=== PATIENT | female | born 1960 | race Caucasian/White ===

== ENCOUNTER 2024-04-28 09:08 | Emergency (ER) | payer OTHER, SELFPAY ==
--- NOTE | ~2024-04-28 | XR_ITS ---
CLINICAL HISTORY: fall 3 views left ankle Comparison: CR - XR FOOT LT MIN 3V - 04/28/2024 09:38 AM EST Findings: The lateral projection was provided on the foot x-ray Incomplete hairline fracture distal tip of the fibula. Ankle mortise intact. Normal plafond. No osteochondral lesions. Calcaneus and subtalar joint intact. No plantar calcaneal spur. Soft tissue swelling along the lateral malleolus. Normal pre-Achilles fat pad. No radiopaque foreign body. Impression: 1. Incomplete hairline fracture distal tip of the fibula with overlying soft tissue swelling. Ankle mortise intact. This document has been electronically signed by: Akash Gunderson MD on 04/28/2024 11:03:08
--- NOTE | ~2024-04-28 | XR_ITS ---
CLINICAL HISTORY: fall 3 views left foot Comparison: None Findings: No fractures, subluxations or dislocations. No periostitis or bony destruction. Mild joint space narrowing of the interphalangeal joints with no erosive disease. Calcaneus and subtalar joint intact. Bunion/hallux valgus 1st metatarsophalangeal joint. Normal bone mineralization and soft tissues. Exostosis 2nd metatarsal bone proximally. No radiopaque foreign body. Impression: 1. No acute fractures or malalignment. Degenerative changes as described. This document has been electronically signed by: Akash Gunderson MD on 04/28/2024 10:56:42
[2024-04-28 09:21] VITALS: BP 162/80; PULSE 107; RESP 18; TEMP 37; O2SAT 97; BMI 23.9
--- NOTE | 2024-04-28 11:25 | ED_ITS ---
HPI - General Adult General Chief complaint: Fall Stated complaint: twisted ankle Time Seen by Provider: 04/28/24 11:24 Source: patient Mode of arrival: wheelchair Limitations: no limitations History of Present Illness ED Provider: Bushra Polanco PA-C HPI narrative: Patient is a 63 year old assigned female at with no reported medical history presenting to the emergency department today with left ankle pain. Patient states that she tripped and fell last night, twisting her left ankle. Patient denies any head strike with the incident, loss of consciousness with the incident, dizziness, lightheadedness, abdominal pain, nausea, vomiting, fever, chills, blurry vision, double vision, loss of vision, chest pain, difficulty breathing, shortness of breath, back pain, night sweats, pain with urination, increased urinary frequency, increased urinary urgency, blood in her urine or stool, syncope or a near syncopal episode, bowel incontinence, bladder incontinence, or any other complaints at this time. Onset (ago): day(s) (1) Location: left and lower extremity Relieving factors: none Exacerbating factors: movement Associated symptoms: denies other symptoms Treatments prior to arrival: none Related Data Previous Rx's ?Medication ?Instructions ?Recorded aspirin 81 mg chewable tablet 81 mg PO BID 30 days #60 tabs 04/28/24 Allergies Allergy/AdvReac Type Severity Reaction Status Date / Time No Known Allergies Allergy Verified 04/28/24 09:22 Review of Systems Constitutional: Constitutional: Reports no additional constitutional complaints, Denies chills, Denies fever(s) and Denies night sweats Eyes: Eyes: Reports no additional eye complaints, Denies blurry vision, Denies change in vision, Denies diplopia, Denies eye discharge, Denies loss of vision and Denies eye pain ENT: Denies dizziness Cardiovascular: Cardiovascular: Reports no additional cardiovascular complaints, Denies chest pain, Denies lightheadedness, Denies Loss of Consciousness and Denies dyspnea Respiratory: Respiratory: Reports no additional respiratory complaints and De nies dyspnea Gastrointestinal: Gastrointestinal: Reports no additional gastrointestinal complaints, Denies abdominal pain, Denies melena, Denies hematochezia, Denies change in bowel habits and Denies change in stool character Genitourinary: Genitourinary: Denies hematuria, Denies urinary frequency, Denies dysuria, Denies urinary incontinence, Denies urinary hesitancy and Denies urinary urgency Musculoskeletal: Musculoskeletal: Reports no additional musculoskeletal complaints, Denies numbness and Denies tingling Comments: left ankle pain Neurologic: Denies dizziness, Denies loss of vision, Denies numbness and Denies tingling Psychiatric: Psychiatric: Reports no additional psychiatric complaints Endocrine: Endocrine: Reports no additional endocrine complaints Hematologic/Lymphatic: Hematologic/Lymphatic: Reports no additional hematologic/lymphatic complaints Allergic/Immunologic: Allergic/Immunologic: Reports no additional al lergic/immunologic complaints PMFSH Past Medical History Attestation statement: The following information was validated with the patient. Source: old records reviewed and nursing notes reviewed Social History Social History Advance Directives: No Advance Directives Information Provided: Yes Do you have a plan to hurt others: No Plan Physical Exam ED Vital Signs: Vital Signs - 24 hr 04/28/24 09:21 Temperature 98.6 F Pulse Rate 107 H Respiratory Rate 18 Blood Pressure 162/80 H Pulse Oximetry 97 Oxygen Delivery Method Room Air BMI result Body Mass Index 23.9 Const General: cooperative, no acute distress, alert and awake Nutritional Appearance: well nourished Orientation/consciousness: patient oriented x3 Limitations: no limitations HENMT Head: Yes normal to inspection and Yes atraumatic Ears: hearing grossly normal bilaterally and external ears normal General nose exam: Normal external nose present, no nasal discharge noted and no epistaxis Face and sinus: Yes normal facial exam, No abrasion and No laceration Mouth: Normal oral and palatal mucosa present, no drooling and no muffled voice Eyes General: appearance normal, both eyes and all related structures Periorbital: periorbital findings normal Eyelids: Yes eyelids normal Conjunctivae: conjunctivae normal Pupils: Equal, round and reactive pupils present EOM: EOMs intact bilaterally Neck Neck: Yes normal visual inspection, Yes full ROM and Yes no lymphadenopathy Chest Chest palpation & inspection: normal inspection of the chest Resp Effort & Inspection: normal respiratory effort and able to speak in complete sentences GI Inspection: Yes normal to inspection Neuro General: patient oriented x3 and moves all extremities Cranial nerves: Yes Equal, round and reactive pupils present Cognition (Neuro): normal cognition Extrem Other: swelling present to the lateral aspect of the left ankle with minimal bruising present pain with palpation of the left ankle General: Yes full ROM and Yes capillary refill normal Psych Appearance: grossly normal Mental Status: mental status grossly normal Affect: normal affect Attitude: cooperative Thought process: Normal thought process present Thought content: Normal thought content present Insight: Good insight present (Psych) Procedures Orthopedic Splinting/Casting Injury #1: Side: left Lower Extremity Injury Location: ankle Lower Extremity Immobilizer: boot orthosis Other Orthopedic Equipment: crutches Medical Decision Making Medical Decision Making MDM Narrative: Patient is a 63 year old assigned female at with no reported medical history presenting to the emergency department today with left ankle pain. Patient's physical exam was as noted in the physical exam portion of this note. Patient's left ankle x-ray showed an incomplete hairline fracture of the distal tip of the tibia with an intact mortise. Patient's left foot x-ray showed no acute process. I explained my physical exam findings as well as all test results to the patient. I answered all questions asked by the patient. Patient's left ankle was placed in a walking boot, without incident. Patient's PMS was intact prior to and after walking boot placement. Patient was given crutches with crutch instructions. Patient states that she is from [place] and returning there on 04/30/2024. Due to patients planned 4 hour flight and inability to promptly get into an orthopedic office or her PCP - I am going to provide 81mg ASA BID for 30 days for DVT prophylaxis. I stressed the importance of the patient taking her medication as directed (either prescribed or as the over the counter packaging recommends). I stressed the importance of the patient following up with her primary care provider and an orthopedic provider. I stressed the importance of the patient returning to the emergency department immediately if her symptoms were to worsen or if she were to develop any dizziness, shortness of breath, difficulty breathing, chest pain, blurry vision, loss of vision, nausea, vomiting, abdominal pain, fever, chills, back pain, or any other complaints. Patient verbalized agreement and understanding with this treatment plan and discharge. Differential Diagnosis Differential Diagnoses: The differential diagnosis associated with the presentation includes Left ankle fracture Tibial fracture Admission/Observation Consideration of admission/observation: Escalation of care including admission/observation considered Patient would have been admitted to the hospital had her work up had any findings where hospital admission was appropriate and her clinical presentation warranted hospital admission. Independent Interpretation I performed an independent interpretation of an: Plain X-Ray Interpretation: My interpretation is in agreement with the radiologist's impression of these imaging studies. CLINICAL HISTORY: fall 3 views left ankle Comparison: CR - XR FOOT LT MIN 3V - 04/28/2024 09:38 AM EST Findings: The lateral projection was provided on the foot x-ray Incomplete hairline fracture distal tip of the fibula. Ankle mortise intact. Normal plafond. No osteochondral lesions. Calcaneus and subtalar joint intact. No plantar calcaneal spur. Soft tissue swelling along the lateral malleolus. Normal pre-Achilles fat pad. No radiopaque foreign body. Impression: 1. Incomplete hairline fracture distal tip of the fibula with overlying soft tissue swelling. Ankle mortise intact. This document has been electronically signed by: Akash Gunderson MD on 04/28/2024 11:03:08 Dictated By: Akash Gunderson MD Signed By: Electronically signed by Akash Gunderson MD 04/28/24 1104 CLINICAL HISTORY: fall 3 views left foot Comparison: None Findings: No fractures, subluxations or dislocations. No periostitis or bony destruction. Mild joint space narrowing of the interphalangeal joints with no erosive disease. Calcaneus and subtalar joint intact. Bunion/hallux valgus 1st metatarsophalangeal joint. Normal bone mineralization and soft tissues. Exostosis 2nd metatarsal bone proximally. No radiopaque foreign body. Impression: 1. No acute fractures or malalignment. Degenerative changes as described. This document has been electronically signed by: Akash Gunderson MD on 04/28/2024 10:56:42 Dictated By: Akash Gunderson MD Signed By: Electronically signed by Akash Gunderson MD 04/28/24 1057 Radiology Impression Discussion of test interpretation with radiology: I have reviewed the radiologist's reading. Discharge Plan Discharge Clinical Impression: Ankle fracture Patient Disposition: Home, Self-Care Instructions: Ankle Fracture (DC), Crutch Instructions (ED) Additional Instructions: Please remain NON weight bearing on the left lower extremity. Any time you are stationary, you should have your left ankle elevated. Take the aspirin as prescribed. Follow up with your primary care provider and an orthopedic provider. Return to the emergency department immediately if your symptoms worsen or if you develop any dizziness, shortness of breath, difficulty breathing, chest pain, blurry vision, loss of vision, nausea, vomiting, abdominal pain, fever, chills, back pain, or any other complaints. Prescriptions: New aspirin 81 mg tablet,chewable 81 mg PO BID 30 Days Qty: 60 0RF Stand Alone Forms: Work/School Release Print Language: Nauruan
[2024-04-28 11:59] VITALS: BP 162/82; PULSE 98; RESP 18; TEMP 37; O2SAT 98
== END 2024-04-28 12:06 | disposition home or self-care (01) ==
PROVIDERS: Emergency Provider Emergency Medicine
DX: S82.892A Other fracture of left lower leg, initial encounter for closed fracture (principal); X50.1XXA Overexertion from prolonged static or awkward postures, initial encounter; Y93.9 Activity, unspecified; Y92.9 Unspecified place or not applicable; Y99.9 Unspecified external cause status
CPT/HCPCS: 73610; 73630; 99283

== ENCOUNTER → 2024-04-28 09:26 | Outpatient (BNV) | payer OTHER, SELFPAY | PROVIDERS: Visit Provider Radiology Diagnostic Radiology | DX: S82.832A Other fracture of upper and lower end of left fibula, initial encounter for closed fracture (principal) | CPT/HCPCS: 73610; 73630 ==